=== PATIENT | female | born 1980 | race Caucasian/White ===

== ENCOUNTER 2019-07-24 13:17 | Emergency (ER) | payer MEDICARE, OTHER ==
[~2019-07-24] VITALS: Ht 170.2 cm; Wt 77.1 kg
[~2019-07-24 13:17] MED LIST: FELBATOL600 MG PO; FOLIC ACID1 MG PO; ULTRAM50 MG PO
[2019-07-24] MEDS ORDERED: ONDANSETRON ODT8 MG PO (16:52)
== END 2019-07-24 17:15 | disposition home or self-care (01) ==
LOC: ED 13:17
DX: G40.909 Epilepsy, unspecified, not intractable, without status epilepticus (principal); D64.9 Anemia, unspecified; Z91.040 Latex allergy status; Z79.899 Other long term (current) drug therapy
CPT/HCPCS: 70450; 80053; 81001; 82542; 83735; 84484; 84703; 85025; 96360; 96361; 99285-25; J7030

== ENCOUNTER 2019-08-07 14:35 | Emergency (ER) | payer MEDICARE, OTHER ==
[~2019-08-07] VITALS: Ht 170.2 cm; Wt 77.1 kg
[~2019-08-07 14:35] MED LIST changes: +ONDANSETRON ODT8 MG PO
--- OUTSIDE RECORDS SUMMARY | 2019-08-07 14:38 | XMS ---
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 Evin VISIT COUNT (12 MO.) 2 [facility] TOTAL 2 NOTE: Visits indicate total known visits. ED/UCC VISIT TRACKING (12 MO.) 08/07/2019 14:35 [facility] [place] TYPE: Emergency COMPLAINT: - ALOC 07/24/2019 13:19 [facility] [place] TYPE: Emergency COMPLAINT: - DIZZINESS, NAUSEA, SEIZURE DIAGNOSES: - Anemia, unspecified - Latex allergy status - Other bed bug exterminator (current) drug therapy - Epilepsy, unsp, not intractable, without status epilepticus INPATIENT VISIT TRACKING (12 MO.) No inpatient visits to display in this time frame [email or web address]
[2019-08-07] MEDS ORDERED: VALIUM5 MG PO (17:10)
--- NOTE | 2019-08-08 16:36 | EKG ---
[facility] [address] [facility] [place] [facility] [place], [place] [address] Signed Normal sinus rhythm Possible Left atrial enlargement Left ventricular hypertrophy Abnormal ECG No previous ECGs available Confirmed by SINAN BLOCK MD ([id number]) on 08/08/2019 4:36:28 PM Electronically Signed By: SINAN BLOCK MD 08/08/19 1636 PATIENT NAME: CARLA GRIFFIN Electrocardiogram DATE OF : 76 PHYSICIAN: SINAN BLOCK MD REPORT #: [id number] REPORT IS CONFIDENTIAL AND NOT TO BE RELEASED WITHOUT AUTHORIZATION
== END 2019-08-07 17:32 | disposition home or self-care (01) ==
LOC: ED 14:35
DX: G40.909 Epilepsy, unspecified, not intractable, without status epilepticus (principal); D64.9 Anemia, unspecified; S40.012A Contusion of left shoulder, initial encounter; Z91.040 Latex allergy status; Z79.899 Other long term (current) drug therapy; X58.XXXA Exposure to other specified factors, initial encounter
CPT/HCPCS: 36415; 73030; 80053; 82542; 85025; 93005; 93010; 99284-25

== ENCOUNTER 2019-10-08 05:55 | Day surgery (SDC) | payer MEDICARE, OTHER ==
[~2019-10-08] VITALS: Ht 170.2 cm; Wt 69.0 kg
[~2019-10-08 05:55] MED LIST changes: +IRON325 M1; +LORAZEPAM1 MG PO; +MULTIVITAMIN W1 EACH PO; +VALIUM5 MG PO
[2019-10-08] MEDS ORDERED: FLONASE ALLERG9.9 ML NAS (06:30)
--- NOTE | 2019-10-12 09:50 | OR ---
[facility] [address] [place], [place] [address] Signed DATE OF OPERATION: 10/08/2019 SURGEON: Rain Duckworth MD PREOPERATIVE DIAGNOSIS: Persistent iron deficiency anemia (recent hematocrit 23). POSTOPERATIVE DIAGNOSES: 1. Cecal tumor consistent with malignancy. 2. Friable area of gastroesophageal junction and nodule of midesophagus. 3. Gastritis with small polyps of proximal stomach. PROCEDURES PERFORMED: 1. Esophagogastroduodenoscopy with biopsy. 2. Total colonoscopy to cecum with biopsy of cecal tumor and injection of Endomark tattoo dye. ANESTHESIA: Intravenous sedation, propofol infusion; Rain Cagle CRNA. 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 She is closely cared for by her mother. She is a patient of Dr. Manrique and Dr. Aragon. She has been noted to have persistent iron deficiency anemia of unknown etiology. She has had no hematemesis, epigastric pain, abdominal pain or blood per rectum. She is referred for upper endoscopy and colonoscopy to better characterize the source of her anemia. She understands as does her mother, the risks of bleeding, infection, and perforation and wished to proceed. FINDINGS: Upper endoscopy showed mild diffuse gastritis and some gastric polyps. She is not on a PPI medication as noted. The duodenum was normal. There is a firm benign-appearing smooth nodule in the distal esophagus at 36 cm, which was biopsied and easily made to bleed, and inflammatory focus of the GE junction as well, which was multiply biopsied. There was no sign of Adams epithelium. On colonoscopy, the source of the anemia is clearly identified as a tumor in the cecum. This was dense and hard and multiple biopsies were obtained. The remaining colon was normal including the rectum. Electronically Signed By: RAIN DUCKWORTH MD 10/12/19 0950 PATIENT NAME: CARLA GRIFFIN OPERATIVE REPORT DATE OF : 76 REPORT #: [id number] PHYSICIAN: RAIN DUCKWORTH MD PCP: LIZ MANRIQUE MD REPORT IS CONFIDENTIAL AND NOT TO BE RELEASED WITHOUT AUTHORIZATION [facility] [address] [place], [place] [address] Signed DESCRIPTION OF PROCEDURE: The patient was brought to the operating room and placed in lateral decubitus position. Given intravenous sedation with propofol infusional technique by the vice president payer. A bite block had been placed. An Olympus video upper endoscope was passed in the hypopharynx. Scope was advanced to the esophagus without problem. In the distal portion of the esophagus was a smooth yellow submucosal nodule. It was not ulcerated, it was not bleeding. The scope was passed beyond this into the stomach without problem. Stomach was insufflated with air. Rugal folds appeared normal. There was no sign of blood particularly. The antrum was normal as was the pylorus. Scope was passed through the pylorus into the duodenum. The duodenum appeared normal. Biopsies were obtained of the duodenum. The scope was withdrawn. Biopsies taken of the antrum for both RUPALI and pathologic testing. Retroflexed view showed a small hiatal hernia. There were few gastric polyps and product sales representative polyp was excised. The scope was straightened, withdrawn to the distal esophagus where a friable Z-line was noted. It did not appear to be a tumor, but it was clearly abnormal. This was multiply biopsied. The scope was withdrawn a bit and a smooth nodule certainly less than 5 mm was noted in the distal esophagus. Interrogation with the biopsy probe showed it to be apparently submucosal nodule and not entirely inconsistent with a leiomyoma or similar such lesion. A submucosal excision could be undertaken, but at this point, a simple biopsy was obtained. It was easily made to bleed. Bleeding was self-limited. The scope was then withdrawn and remaining esophagus was normal. Plans were then made for colonoscopy. Digital examination showed external hemorrhoidal changes. An Olympus video colonoscope was passed into the rectum and manipulated throughout the colon. What would likely be the cecum, a friable, firm, non-passable neoplasm was noted. It was most consistent with colon cancer. Endomark tattoo dye was injected in the surrounding area for future reference operatively and multiple biopsies taken of the lesion. It is most consistent with malignancy as it was firm and friable. Scope was then withdrawn. On examination, the remaining colon showed no sign of other abnormality. The scope was removed. The patient was taken to recovery room in good condition. CONCLUDING DIAGNOSIS: Most likely anemia related to cecal tumor (malignant). PLAN: We will make consideration for resection in the next several days. Today, we will obtain a CT scan of the abdomen and pelvis to assess for metastatic disease and further characterize the tumor characteristics. Electronically Signed By: RAIN DUCKWORTH MD 10/12/19 0950 PATIENT NAME: CARLA GRIFFIN OPERATIVE REPORT DATE OF : 76 REPORT #: [id number] PHYSICIAN: RAIN DUCKWORTH MD PCP: LIZ MANRIQUE MD REPORT IS CONFIDENTIAL AND NOT TO BE RELEASED WITHOUT AUTHORIZATION [address] [address] Signed MD JEFFERY Saavedra/MODL /[id number] cc: MD Javier Suazo MD Copies: LIZ MANRIQUE MD, ROBERT C MD ~ Electronically Signed By: RAIN DUCKWORTH MD 10/12/19 0950 PATIENT NAME: CARLA GRIFFIN OPERATIVE REPORT DATE OF : 76 REPORT #: [id number] PHYSICIAN: RAIN DUCKWORTH MD PCP: LIZ MANRIQUE MD REPORT IS CONFIDENTIAL AND NOT TO BE RELEASED WITHOUT AUTHORIZATION
--- NOTE | 2019-10-12 15:20 | PATH ---
[facility] [address] [place], [place] [address] Signed SPECIMEN(S): A DUODENUM SPECIMEN(S): B GASTRIC POLYP SPECIMEN(S): C ANTRUM/PYLORUS SPECIMEN(S): D GE JUNCTION SPECIMEN(S): E ESOPHAGUS AT 35 CM SPECIMEN(S): F CECAL TUMOR SPECIMEN SOURCE: A. DUODENUM B. GASTRIC POLYP C. ANTRUM/PYLORUS D. GE JUNCTION E. ESOPHAGUS AT 35 CM F. CECAL TUMOR CLINICAL HISTORY: Severe anemia. EGD post: Esophageal nodule, gastritis. Colon post: Tumor at cecum. MICROSCOPIC DESCRIPTION: Histologic sections of all submitted blocks are examined by light microscopy. These findings, together with the gross examination, support the pathologic diagnosis. A panel of four antibodies is selected which will detect 95% of microsatellite unstable carcinomas. Block: F1. Recut HE slide is prepared from the block. The presence of neoplastic glands and non-neoplastic internal control glands or stroma is confirmed. Internal control cells for MLH1, MSH2, PMS2 and MSH6 are positive. Neoplastic gland cells show the following: - MLH1: Positive. - MSH2: Positive. - MSH6: Positive. - PMS2: Positive. [facility] [place] [facility] [place] DDF:rafaela FINAL PATHOLOGIC DIAGNOSIS: A. Duodenum, biopsy: - Reactive duodenal mucosa, negative for significantly increased intraepithelial lymphocytosis. B. Gastric polyp, polypectomy: PATIENT NAME: CARLA GRIFFIN Sonny PATHOLOGY DATE OF : 76 REPORT #: [id number] PHYSICIAN: [facility] PCP: LIZ MEDEROS MD REPORT IS CONFIDENTIAL AND NOT TO BE RELEASED WITHOUT AUTHORIZATION [facility] [address] [place], [place] [address] Signed - Fundic gland polyp. C. Antrum/pylorus, biopsy: - Benign gastric mucosa with vascular congestion. - Negative for intestinal metaplasia. - Negative for Helicobacter organisms on routine stain. D. GE junction, biopsy: - Fragments of reactive squamocolumnar mucosa. - Negative for intestinal metaplasia and dysplasia. E. Esophageal nodule at 35 cm, biopsy: - Poorly differentiated carcinoma; see comment. F. Cecal tumor, biopsy: - Invasive adenocarcinoma, moderately differentiated. - Microsatellite instability testing by IHC: Normal pattern. - MLH1: Intact nuclear expression. - MSH2: Intact nuclear expression. - MSH6: Intact nuclear expression. - PMS2: Intact nuclear expression. COMMENT: Tumor cells show no loss of nuclear expression of MMR proteins. This correlates with a low probability of microsatellite instability. However, if there is a high clinical suspicion for Gregg syndrome (hereditary non-polyposis colorectal carcinoma syndrome) in this patient, additional testing should be considered. Please contact [facility] if such testing is indicated. Histologic sections of the esophageal nodule show clusters and sheets of atypical epithelioid cells within the submucosa. Rare vague glandular differentiation is seen but mostly solid sheets are present. Properly controlled immunohistochemical stains were performed. The cells of interest are strongly positive for pancytokeratin (AE1/AE3) while negative for p63 and S100. These findings are consistent with carcinoma. Based on the morphology, this would best be described as poorly differentiated. The negative p63 makes a squamous cell carcinoma less likely, favoring this to be a poorly differentiated adenocarcinoma. As part of [facility]' Quality Improvement Program, this case was reviewed by another member of our pathology staff. These results were relayed to Dr. Petit by Dr. Trujillo on 10/12/2019 at 2:45 PM. DDF:NRT:cml:C1NR GROSS DESCRIPTION: PATIENT NAME: CARLA GRIFFIN PATHOLOGY DATE OF : 76 REPORT #: [id number] PHYSICIAN: ZAK GRISSOM PCP: LIZ MEDEROS MD REPORT IS CONFIDENTIAL AND NOT TO BE RELEASED WITHOUT AUTHORIZATION [facility] [address] [place] [id number] Signed Six specimens are received in six containers, labeled "CM." A. The specimen, labeled "CM, 1," and designated on the requisition "duodenum," is received in formalin and consists of a single monzon soft tissue fragment that measures 0.3 cm in greatest dimension. The specimen is entirely submitted in cassette (A1). B. The specimen, labeled "CM, 2," and designated on the requisition "stomach polyp," is received in formalin and consists of a single monzon soft tissue fragment that measures 0.3 cm in greatest dimension. The specimen is entirely submitted in cassette (B1). C. The specimen, labeled "CM, 3," and designated on the requisition "antrum/pylorus," is received in formalin and consists of a single monzon soft tissue fragment that measures 0.3 cm in greatest dimension. The specimen is entirely submitted in cassette (C1). D. The specimen, labeled "CM, 4," and designated on the requisition "GE junction," is received in formalin and consists of two monzon soft tissue fragments that measure 0.3 cm in greatest dimension. The specimen is entirely submitted in cassette (D1). E. The specimen, labeled "CM, 5," and designated on the requisition "esophageal nodule at 35 cm," is received in formalin and consists of three monzon soft tissue fragments that measure 0.3 cm in greatest dimension. The specimen is entirely submitted in cassette (E1). F. The specimen, labeled "CM, 6," and designated on the requisition "cecal tumor," is received in formalin and consists of multiple monzon-brown soft tissue fragments that measure 0.3 cm in greatest dimension. The specimen is entirely submitted in cassette (F1). AT (under the direct supervision of a pathologist) The Gross Description was prepared using a voice recognition system. The report was reviewed for accuracy; however, sound-alike word errors, addition and/or deletions may occur. If there is any question about this report, please contact Client Services. ADDITIONAL NOTES: Immunohistochemical and/or in situ hybridization studies were performed on this case with the appropriate positive controls that react as expected. This test was developed and its performance characteristics determined by [facility]. It has not been cleared or approved by the U.S. Food and Drug Administration. The FDA has determined that such clearance or approval is not necessary. This test is used for clinical purposes. It should not be regarded as investigational or for research. [facility] is certified under the PATIENT NAME: CARLA GRIFFIN PATHOLOGY DATE OF : 76 REPORT #: [id number] PHYSICIAN: [facility] PATHOLOGY PCP: LIZ MEDEROS MD REPORT IS CONFIDENTIAL AND NOT TO BE RELEASED WITHOUT AUTHORIZATION [facility] [address] [place], [place] [address] Signed Clinical Laboratory Improvement Amendments of 1988 (CLIA) as qualified to perform high complexity clinical laboratory testing. PERFORMING LABORATORY: The technical component was performed by [facility], [address] [place] [id number] (Messenger Floorperson: Magy Santiago MD; CLIA# [id number]). [facility], [address] [address] (CLIA# [id number]). Diagnostician: Frantz Trujillo DO Pathologist Electronically Signed 10/12/2019 Copies: ~ PATIENT NAME: CARLA GRIFFIN PATHOLOGY DATE OF : 76 REPORT #: [id number] PHYSICIAN: [facility] PATH[facility] PCP: LIZ MEDEROS MD REPORT IS CONFIDENTIAL AND NOT TO BE RELEASED WITHOUT AUTHORIZATION
== END 2019-10-08 11:25 | disposition home or self-care (01) ==
LOC: DS 05:55 → OPS 05:55 → DS 06:45 → OPS 06:45
PROVIDERS: Surgery
PROC: 0DB98ZX Excision of Duodenum, Via Natural or Artificial Opening Endoscopic, Diagnostic (ICD-10-PCS; 2019-10-08)
PROC: 0DB78ZX Excision of Stomach, Pylorus, Via Natural or Artificial Opening Endoscopic, Diagnostic (ICD-10-PCS; 2019-10-08)
PROC: 0DB58ZX Excision of Esophagus, Via Natural or Artificial Opening Endoscopic, Diagnostic (ICD-10-PCS; 2019-10-08)
PROC: 0DB48ZX Excision of Esophagogastric Junction, Via Natural or Artificial Opening Endoscopic, Diagnostic (ICD-10-PCS; 2019-10-08)
PROC: 0DBH8ZX Excision of Cecum, Via Natural or Artificial Opening Endoscopic, Diagnostic (ICD-10-PCS; principal; 2019-10-08 06:45)
PROC: 3E0H8GC Introduction of Other Therapeutic Substance into Lower GI, Via Natural or Artificial Opening Endoscopic (ICD-10-PCS; 2019-10-08 06:45)
DX: C18.0 Malignant neoplasm of cecum (principal); C15.5 Malignant neoplasm of lower third of esophagus; D50.9 Iron deficiency anemia, unspecified; K64.4 Residual hemorrhoidal skin tags; K44.9 Diaphragmatic hernia without obstruction or gangrene; G40.909 Epilepsy, unspecified, not intractable, without status epilepticus; G91.9 Hydrocephalus, unspecified; G81.10 Spastic hemiplegia affecting unspecified side; F41.1 Generalized anxiety disorder; Z91.040 Latex allergy status; Z79.899 Other long term (current) drug therapy
CPT/HCPCS: 36415; 74177; 80053; 82247; 82378; 82465; 83615; 84100; 84478; 84550; 84703; 85025; 88305; 88341; 88342; J0690; J2704; J7121

== ENCOUNTER 2019-10-14 14:20 | Inpatient (IN) | payer MEDICARE, OTHER ==
[~2019-10-14] VITALS: Ht 170.2 cm; Wt 68.0 kg
--- OUTSIDE RECORDS SUMMARY | ~2019-10-14 | XMS | Encounter Summary ---
Demographics + + + | Address | [address] | | | [place] [address] | + + + | Home Phone | | + + + | Preferred Language | Unknown | + + + | Marital Status | Unknown | + + + | Mu-Ism Affiliation | Unknown | + + + | Race | Unknown | + + + | Ethnic Group | Unknown | + + + Author + + + | Author | [facility] | | | and [place] | + + + | Organization | [facility] | | | and [place] | + + + | Address | Unknown | + + + | Phone | Unavailable | + + + Support + + +---------+ + | Name | Relationship | Address | Phone | + + +---------+ + | Lu William | ECON | Unknown | | + + +---------+ + | Aydin Stewart | ECON | Unknown | | + + +---------+ + Care Team Providers + +------+ + | Care Seafood Team Member Name | Role | Phone | + +------+ + PCP | Unavailable | + +------+ + Encounter Details +--------+ + + + + | Date | Type | Department | Care Team | Description | +--------+ + + + + | 02/22/ | [facility] | [facility] | Frantz Zepeda MD | | | 2009 | Encounter | MED CTR XRAY [address] | | | | | [place] | [place] [address] | | | | | [place] [address] | [phone] | | | | | [phone] | | | +--------+ + + + + Social History + +-------+ +--------+------+ | Tobacco Use | Types | Packs/Day | Years | Date | | | | | Used | | + +-------+ +--------+------+ | Never Assessed | | | | | + +-------+ +--------+------+ + + + | Sex Assigned at | Date Recorded | | | | + + + | Not on file | | + + + + + + + | Job Start Date | Occupation | Industry | + + + + | Not on file | Not on file | Not on file | + + + + + + + + | Travel History | Travel Start | Travel End | + + + + + + | No recent travel history available. | + + documented as of this encounter Plan of Treatment +--------+---------+ + + + | Date | Type | Specialty | Care Team | Description | +--------+---------+ + + + | 12/15/ | Office | Neurology | Nathaniel, | | | 2020 | Visit | | [address] | | | [address] [place], | | | | | | [place] [address] | | | | | | [phone] | | | | | | | | +--------+---------+ + + + documented as of this encounter Visit Diagnoses Not on filedocumented in this encounter"
--- OUTSIDE RECORDS SUMMARY | ~2019-10-14 | XMS | Encounter Summary ---
Demographics + + + | Address | [address] | | | [place] [address] | + + + | Home Phone | | + + + | Preferred Language | Unknown | + + + | Marital Status | Unknown | + + + | Congregation Affiliation | Unknown | + + + | Race | Unknown | + + + | Ethnic Group | Unknown | + + + Author + + + | Author | [facility] | | | and [place] | + + + | Organization | [facility] | | | and [place] | + + + | Address | Unknown | + + + | Phone | Unavailable | + + + Support + + +---------+ + | Name | Relationship | Address | Phone | + + +---------+ + | Lu William | ECON | Unknown | | + + +---------+ + | Aydin Stewrat | ECON | Unknown | | + + +---------+ + Care Team Providers + +------+ + | Care Senior Sql Server Database Developer Name | Role | Phone | + +------+ + PCP | Unavailable | + +------+ + Encounter Details +--------+ + + + + | Date | Type | Department | Care Team | Description | +--------+ + + + + | 04/05/ | [facility] | [facility] | Jay Pitt | | | 2009 | Encounter | MED CTR XRAY [address] | | | | | [place] | [place] | | | | | [place], [place] [address] | [address] | | | | | [phone] | | | +--------+ + + + [...] | | | | | [address] [place], | | | | | | [place] [address] | | | | | | [phone] | | | | | | | | +--------+---------+ + + + documented as of this encounter Visit Diagnoses Not on filedocumented in this encounter"
--- OUTSIDE RECORDS SUMMARY | ~2019-10-14 | XMS | Encounter Summary ---
Demographics + + + | Address | [address] | | | [place] [address] | + + + | Home Phone | | + + + | Preferred Language | Unknown | + + + | Marital Status | Unknown | + + + | Cheondoism Affiliation | Unknown | + + + | Race | Unknown | + + + | Ethnic Group | Unknown | + + + Author + + + | Author | [facility] | | | and Rickyana | + + + | Organization | [facility] | | | and Rickyana | [...] Team Providers + +------+ + | Care Well Drill Operator Helper Cable Tool Name | Role | Phone | + +------+ + PCP | Unavailable | + +------+ + Reason for Referral Evaluate & Treat (Routine) + + + + + + + | Status | Reason | Specialty | Diagnoses / | Referred By | Referred To | | | | | Procedures | Contact | Contact | + + + + + + + | Canceled | Specialty | Hematology | Diagnoses | Dill, | Agustín, | | | Services | and Oncology | Other | Kurt Moreno, | Francisco Javier | | | Required | | 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[address], | [address] | | | | | anemias | [place] | [place], | | | | | (FORMERLY [facility]) | [place], [place] | [place] [address] | | | | | | [address] | Phone: | | | | | | Phone: | [phone] | | | | | | [phone] | Fax: | | | | | | Fax: | [phone] | | | | | | [phone] | | + + + + + + + Diagnostic/Screening (Routine) + +--------+ + + + + | Status | Reason | Specialty | Diagnoses / | Referred By | Referred To | | | | | Procedures | Contact | Contact | + +--------+ + + + + | Authorized | | Radiology | Diagnoses | Dill, | Cc Wgr Mri | | | | | Seizures | Kurt R, | [address] | | | | | (HCC) | MD [address] | [place] | | | | | Procedures | [address], | [place], [place] | | | | | MRI Brain w | [place] | [address] | | | | | wo Contrast | [place], [place] | Phone: | | | | | | [address] | [phone] | | | | | | Phone: | Fax: | | | | | | [phone] | [phone] | | | | | | Fax: | | | | | | | [phone] | | + +--------+ + + + + Reason for Visit + + + | Reason | Comments | + + + | Establish Care | seizures | + + + Evaluate & Treat (Routine) +--------+--------+ + + + + | Status | Reason | Specialty | Diagnoses / | Referred By | Referred To | | | | | Procedures | Contact | Contact | +--------+--------+ + + + + | Closed | | Neurology | Diagnoses | Burton, | Fuentes, | | | | | Other | Ken[place] | Kurt Moreno MD | | | | | seizures | MD Angel | [address] | | | | | ([facility]) | [address] | [place] | | | | | | [address] | [place], [place] | | | | | | [place], | [address] Phone: | | | | | | [place] [address] | [phone] | | | | | | Phone: | Fax: | | | | | | [phone] | [phone] | | | | | | Fax: | | | | | | | [phone] | | +--------+--------+ + + + + Encounter Details +--------+---------+ + + + | Date | Type | Department | Care Team | Description | +--------+---------+ + + + | 08/25/ | Office | [place] [facility] | Kurt Dill MD | SEIZURE DISORDER, | | 2020 | Visit | [facility] | [address] [place] | COMPLEX PARTIAL | | | | CLINIC [address] | [place], [place] | (Primary Dx); | | | | [address] [place], | [address] | Spastic hemiplegia | | | | [place] [address] | | affecting left | | | | [phone] | | dominant side, | | | | | | unspecified etiology | | | | | | (HCC); 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 | | | + + + + | How many drinks containing alcohol do you | Not asked | | | have on a typical day when you are | | | | drinking? | | | + + + + | How often do you have six or more drinks on | Not asked | | | one occasion? | | | + + + + + + + | Sex Assigned at [...] + + documented as of this encounter Last Filed Vital Signs + + + + + | Vital Sign | Reading | Time Taken | Comments | + + + + + | Blood Pressure | 124/86 | 08/26/2019 8:52 AM | | | | | PDT | | + + + + + | Pulse | 128 | 08/26/2019 8:52 AM | | | | | PDT | | + + + + + | Temperature | - | - | | + + + + + | Respiratory Rate | 20 | 08/26/2019 8:52 AM | | | | | PDT | | + + + + + | Oxygen Saturation | 99% | 08/26/2019 8:52 AM | | | | | PDT | | + + + + + | Inhaled Oxygen | - | - | | | Concentration | | | | + + + + + | Weight | 69.4 kg (153 lb) | 08/26/2019 8:52 AM | | | | | PDT | | + + + + + | Height | 167.6 cm (5' 6") | 08/26/2019 8:52 AM | | | | | PDT | | + + + + + | Body Mass Index | 24.69 | 08/26/2019 8:52 AM | | | | | PDT | | + + + + + documented in this encounter Patient Instructions Patient Instructions Kurt Dill MD - 08/26/2019 9:00 AM PDTFormatting of this note mi ght be different from the original. Patient Instructions [facility] Dr. 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 magazines, perform word find exercises such as cross word puzz le, and scrabble, other puzzle games like vIPtelau, Mahjong. Play computer/mobile applications such as [employer] and [employer] GAMES Continue Felbatol 1,800 mg twice a day Will obtain recent blood tests from [facility]. In [place] Advised to avoid sleep deprivation, alcohol, stimulants, or any type of head trauma Discussed with mother Stacia, and step father Aydin Discussed with mother that if she persists to have seizures, we'll start Keppra 500 mg by m nuris twice a day Got recent blood tests from [facility] in [place], Felbatol level was 97, normal range 30 60 micrograms per mL, therefore toxic levels and with evidence of anemia hemoglobin 8.4 he matocrit 25.7, advised to decrease Felbatol to 2 tabs a.m., and 3 tabs in p.m. We'll refer to hematologists for her anemia, Dr. Randolph Any Questions please call BRETT Price or Dr. Dill at [facility] Partial Seizures: Know What to Do Because seizures may happen at any time, it helps to be prepared. This is true even ifmed ivoryne usually keeps your seizures under control. Start by telling those you live and work wi th about your health condition. Make sure they know what to do if a seizure happens. Steps for your protection Most partial seizures last from a few seconds to a few minutes. During that time, those juan und you should help keep you safe. What those witnessing the seizure should do is listed bel ow. What to do Seek medical attention right awayif you: Are hurt during the seizure Begin choking Have a seizure that lasts more than 5 minutes Have multiple seizures in a row Don't fully regain consciousness after the seizure is over Otherwise, they should do the following: Move any hard or sharp objects away from you. Turn you on your left side if you seem unconscious. Talk to you afterward to relieve your confusion. Note how long the seizure lasted. Note what you were doing before, during, and after the seizure. What NOT to do It is important thatthey don't do the following: Don't try to stop any jerking or twisting. Don't put anything in the mouth. Don't try to hold the tongue. Prepare family, friends, and coworkers It may seem awkward to talk to others about seizures. But telling family, friends, and cowo rkers about your seizures can help them react to a seizure in a way that will help and not hurt you. Describe to them what happens before, during, and after you have a seizure. Exp rubin what they should and should not do. Date Last Reviewed: 10/08/201719992940-0236 [employer]. [address] [place] [address], [place] [address]. All righ ts reserved. This information is not intended as a substitute for professional medical care. Always follow your healthcare professional's instructions. Medicines for Partial Seizures For most people,medicines can control partial seizures. But because there are several typ es of partial seizures, it may take some time to find the bestmedicines for you. Yourhea [facility] providermay try several kinds ofmedicines at varying doses before finding what w orks best for you. You can help makemedicines a success by following these suggestions. Keep yourhealthcare providerinformed Don t be afraid to talk to yourhealthcare providerabout your medicines. Speaking up i s the only way your healthcare provider can know if yourmedicine is working right. Be sure to tell yourhealthcare providerif: You are still having seizures. Keep a seizure calendar to accurately keep track of your seizures. You notice any side effects from the medicine. You are taking any other medicines even gvgl-bfl-zanzaex ones. It is always important to be under the regular care of a healthcare provider if you have a seizure disorder. Make it a habit Try some of these ideas to make it easier to remember to take medicine: Set a watch or clock to go off when it s time for the next dose. Keepmedicine with things you use routinely. Store it near your makeup, toothbrush, or coffee mug, for example. Use a pillbox to count out all the pills you need for a week. Ask family, friends, or coworkers to remind you when it s time to take a dose. Consider a phone or Internet-based darrian that reminds you to take your medicine. Keep your medicines out of reach from children. Takemedicine as directed You need a certain level ofmedicine in your blood at all times. This way, when a seizure happens, your body is ready for it. Never skip a dose or stop taking yourmedicine without your healthcare provider s knowledge. Doing so could result in serious consequences. It's quite common for people with epilepsy to miss a single dose once in a while. Often nothing b ad happens but your change of having a seizure may be higher. Missing one dose is more likel y to cause seizures if you're scheduled to take your medicine only once a day. Then if you m iss a dose, you've missed a full day of medicine. If you take it 2 to 4 times a day, the ris k from missing one dose is less. But if you miss several doses in a row, the likelihood of a breakthrough seizure will be higher. Therefore, take all precautions to ensure that you kishor e your medicine on time. Date Last Reviewed: 10/08/201719992852-9013 [employer]. [address] [place] [address]. All righ ts reserved. This information is not intended as a substitute for professional medical care. Always follow your healthcare professional's instructions. What is a Partial Seizure (Focal Seizure)? In a partial seizure, excessive signals in the brain cause symptoms in the body. Have you or someone else noticed part of your body moving or shaking involuntarily? Do you have short periods when you feel confused, have memory loss, or appear to act unusual? Are y ou sometimes unaware of your actions or do you even pass out for a few moments? If so, you m ay be experiencing partial seizures. These occur when you have a condition called epilepsy. Partial seizures can be scary and frustrating. The good news is that they can usually be co ntrolled. How the brain works Your brain uses short bursts of electricity as signals. These signals allow areas of the br ain to communicate with each other. These signals also travel from the brain to the rest of your body. When part of the brain overloads Sometimes the signals become excessive. When this happens in one area of the brain, it is c alled a partial seizure. The excessive signals cause part of the body to work abnormally. Th en you may twitch, feel confused, or pass out for a moment. Partial seizures can present in many ways. Simple partial seizuresoften have only a few minor symptoms, such as hand twitching, v isual changes, smelling an unusual odor, or feeling a sense of dj-vu. "Simple"means th ere is no loss of consciousness. Complex partial seizures are often associated with more abnormal behavior. They may also affect your mental functioning to some degree."Complex"means youmay have a lowered le gladys of consciousness, mental confusion, or loss of memory. Partial seizures can be controlled Seizures can be caused by irritation or damage to the brain from injury, scar formation, tu mors, stroke, or infection.Usually the cause is unknown. However, most partial seizures ca n be successfully treated. With treatment, most people with seizures lead normal, fulfilling lives. Date Last Reviewed: 10/08/201719996857-1130 [employer]. [address] [facility], [place] [address]. All righ ts reserved. This information is not intended as a substitute for professional medical care. Always follow your healthcare professional's instructions. Partial Seizures: Staying Healthy With a little bit of planning, most people with partial seizures are able to lead active, f ulfilling lives. You can, too. Follow these suggestions to stay as healthy as possible and h ead off seizures before they happen. Get regular, moderate exercise Walking and biking are great ways to stay active. Make sure your seizures are under control before starting any exercise program to decrease your risk for injury. Make it safer and mo re fun by asking a friend to join you or consider organized exercise groups or classes. Don't swim until seizures are under control. Then, never swim alone. Because you could become unconscious or veer off the road due to a sudden movement, there i s the potential for danger while cycling if seizures are not well controlled. In addition to the risk for broken bones, head injuries can occur while cycling, so always wear a helmet. Find ways to deal with stress You may have stressors in your everyday life. You may also be feeling some stress from deal ing with seizures. But feeling too much stress may trigger seizures. Try some of these ideas to reduce stress: Consider switching job activities if your work is not compatible with epilepsy. Get more help around the house. Look at having seizures as a chance to review your life's goals. Focus your energy on staying well. Many successful people have coped with seizures. Talk to family and friends about your concerns. Ask your doctor about support groups for people dealing with seizures. Ask your doctor or nurse to show you relaxation methods, such as deep breathing and visu alization. Spend time on a hobby you enjoy. Don't use brain-altering substances Many chemicals can cause or trigger seizures. Even small amounts of alcohol can lead to sei zures. Many illegal drugs also cause severe seizures, even in people who don't normally have them. Listen to your body You can sometimes limit seizures by staying in touch with what your body is telling you. Identify events that may trigger your seizures. For instance, flickering lights from the TV, computer screen, or fluorescent lights trigger seizures in some people. Look for patterns that occur before a seizure happens. Some people notice certain sounds , smells, or sights that aren t really there (called an aura) just before a seizure. Keep your body from becoming overtired. Get enough sleep every night. Get plenty of rest when you are sick. The risk of getting a seizure is high when you are fighting an infection. Date Last Reviewed: 10/08/201719996343-9267 [employer]. [address] [place] [address], [place] [address]. All righ ts reserved. This information is not intended as a substitute for professional medical care. Always follow your healthcare professional's instructions. documented in this encounter Progress Notes Kurt Dill MD - 08/26/2019 9:00 AM PDT Patient: Wanda Carrion Medical Record: [id number] Date of Services: 08/26/2019 Referring Doctor: No primary care provider on file. Chief Complaint: Seizures, recurrent History of Present Illness: Mrs. Carrion was a 39-year-old right-handed young lady, seen for neurologic evaluation, co mplaint of recurrent seizures for the past a few weeks, complex partial with secondary gener alization. She has significant history of seizures since she was 2 years old after she had developed meningitis and was initially placed on Dilantin and phenobarbital combination. Sh e was even tried on gabapentin previously with no success of the present medications. Patie nt was then switched to Felbatol which she receives at a 1800 mg by mouth twice a day, 3 tab lets by mouth twice a day. About 6 weeks ago, she was found on the floor in the bathroom when she apparently had a sei zure episode at that time. According to the patient and family, seen with the mother Stacia and stepfather Aydin, she tried to get up and apparently the next thing she was having tonic- clonic seizures for a few minutes and resolved spontaneously. He did not seek consultation until about a week when her seizures recurred once again and she seen in [facility] in [place] where a CT scan of brain on contrast on July 24, 2019, demonstrating shunt ca theter in the right frontal horn, ventriculomegaly, absence of the corpus callosum and no e vidence of acute mass or bleed. Her blood tests at that time demonstrated normal renal and liver functions, however, she wa s noted to have hemoglobin 8.4 hematocrit 25.7 and a Felbatol level was 97, toxic level with reference value of 30 60 micrograms per mL. From the last report of her CBC on January, her CBC at that time demonstrated hemoglobin of 13 and hematocrit of 38. According to the family, she will have repeat blood tests this coming Saturday. I discussed in detail about the side effects of Felbatol with development of blood dyscrasi as such as aplastic anemia and will be referred to a care coordination manager, [facility]. Advised to at least decrease her Felbatol to 2 in the morning, and 3 tabs in the tanner amber and if recurent seizures , she will start on Keppra 500 mg by mouth twice a day for seizure prophylaxis and will slowly taper Felbatol. I discussed this in great detail with t he mother Stacia. In addition, further investigation will be Performed with a MRI the brain with or without contrast, routine and 24-hour ambulatory EEG monitoring. Of special note, patient has significant history of status post shunt placement at 2-1/1 ye ars old with no revisions. 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 Unfortuna geovanni, after her last seizure, her gait has slightly deteriorated and advised aggressive PT/O T and water therapy Past Medical History: Diagnosis Date Anemia Depression Developmental delay Hydrocephalus (HCC) Seizures (HCC) Tuberculosis 1979 Social History Socioeconomic History Marital status: Single Spouse name: Not on file Number of children: Not on file Years of education: Not on file Highest education level: Not on file Occupational History Not on file Social Needs Financial resource strain: Not on file Food insecurity: Worry: Not on file Inability: Not on file Transportation needs: Medical: Not on file Non-medical: Not on file Tobacco Use Smoking status: Never Smoker Smokeless tobacco: Never Used Substance and Sexual Activity Alcohol use: Never Frequency: Never Drug use: Never Sexual activity: Not on file Lifestyle Physical activity: Days per week: Not on file Minutes per session: Not on file Stress: Not on file Relationships Social connections: Talks on phone: Not on file Gets together: Not on file Attends taoist service: Not on file Active member of club or organization: Not on file Attends meetings of clubs or organizations: Not on file Relationship status: Not on file Intimate partner violence: Fear of current or ex partner: Not on file Emotionally abused: Not on file Physically abused: Not on file Forced sexual activity: Not on file Other Topics Concern Not on file Social History Narrative Not on file Family History Problem Relation Age of Onset No known problems Mother Other (see comment) Father Review of Systems: Denies headache, earache, nasal catarrh, diplopia, blurring of vision, d ysphagia, odynophagia, sore throat, neck masses, hearing loss, chest pain, palpitations, mau rtness of breath, cough, hemoptysis, abdominal pain, diarrhea, constipation, bowel or bladde r dysfunction, hematuria, dysuria, lymphadenopathies, echhymoses, rashes, gait ataxia, and h omicidal or suicidal ideations. Current Outpatient Medications Medication Sig Dispense Refill felbamate (FELBATOL) 600 MG tablet take 2 tablets three times daily fluticasone (FLONASE) 50 mcg/nasal spray folic acid 1 mg tablet Take 1 mg by mouth Daily. LORazepam (ATIVAN) 1 mg tablet take 1 tablet by mouth if needed for SEIZURE; NOT MORE T WARE 2 TABLETS DAILY multivitamin (THERAGRAN) per tablet Take one by mouth daily tretinoin (RETIN-A) 0.1 % cream No current facility-administered medications for this visit. Allergies Allergen Reactions Latex Hives Labs & Diagnostics: No results found for this or any previous visit (from the past 24 hour(s)). No results found. Neurological Examination: Vitals: 08/26/19 0852 BP: 124/86 Pulse: 128 Resp: 20 PainSc: 0 - No pain MENTAL STATUS: The patient is awake, alert, and oriented to time, place, and person. [facility] is fluent. Able to repeat and able to name simple objets CRANIAL NERVES: Funduscopy revealed distinct disc margins. There are no exudates or hemor rhages noted. Pupils are 3-4 mm, equal and reactive to light and accommodation. Extraocular muscle movements are intact. There are no visual field cuts. There is no nystagmus. There is no facial asymmetry. Facial sensation is intact. Palate elevates symmetrically. Streng th in the trapezius and sternocleidomastoid muscles is normal. Tongue is midline on protrusi on. MOTOR EXAMINATION: Strength is 5/5 throughout. Tone is normal. SENSORY EXAMINATION: withdraws to painful stumuli symmetrically DEEP TENDON REFLEXES: Hyperreflexic throughout, 3 + slightly more on the rightPLANTAR RESPO NSES: Downgoing bilaterally GAIT: Wide base stance, difficulty in ambulation requirng support with spastic left hemipa resis, requires assistance for ambulation CEREBELLAR EXAMINATION: There is no dysmetria on [id number]-kk-[id number] test. MISCELLANEOUS EXAM: Well kept, well nourished, Atraumatic, no evidence of frontal or maxil [place]erie sinus tenderness, no neck masses, mild tenderness in the paraspinal lumbosacral spine w ith increased pain upon flexion and extension at 5-10, abdomen is soft and nontender, extr emities equally palpable pulses Clinical Impression: Seizures, complex partial with secondary generalization, recurrent with recent head trauma Hx Shunt placement at 2 1/2 y/o Hx Meningitis @ 2 y/o with development of meningitis Gait disorder with left spastic hemiparesis Hx Mental Deficiency due to history of meningitis at 2 y/o Plan: Please schedule next follow up appt with Devante in 3-4 months for Seizures, complex partial with secondary generalization Hx Shunt placement at 2 1/2 y/o Hx Meningitis @ 2 y/o with development of meningitis Gait disorder with left spastic hemiparesis You have the following tests/procedures ordered: Orders Placed This Encounter Procedures MRI Brain w wo Contrast EEG EEG 24 HR AMBULATORY MONITORING Treatment Option- massage, Acupuncture, Over the counter heat patches (icy hot, thermacare, salonpas) , over the counter creams (aspercream, bengay cream, emu oi l), Relaxation therapy, Water therapy, Cortisone shots, Toradol Injections Suggest reading newspapers. magazines, perform word find exercises such as cross word puzz le, and scrabble, other puzzle games like SudJFDI.Asiau, Mahjackng. Play computer/mobile applications such as Moprise and MIND GAMES Continue Felbatol 1,800 mg twice a day Will obtain recent blood tests from [facility]. In [place] Advised to avoid sleep deprivation, alcohol, stimulants, or any type of head trauma Discussed with mother Stacia, and step father Aydin Discussed with mother that if she persists to have seizures, we'll start Keppra 500 mg by m nuris twice a day Got recent blood tests from [facility] in [place], Felbatol level was 97, normal range 30 60 micrograms per mL, therefore toxic levels and with evidence of anemia hemoglobin 8.4 he matocrit 25.7, advised to decrease Felbatol to 2 tabs a.m., and 3 tabs in p.m. We'll refer to hematologists for her anemia, Dr. Randolph Advised home PT/OT and water therapy for gait training, though family prefers to perform th eir own home PT/OT at home Any Questions please call BRETT Price or Dr. Dill at [facility] Kurt Dill MD08/26/20199:49 AM Electronically signed NOTE: Part of this report was transcribed using voice recognition software. Every effort was made to ensure accuracy. However, inadvertent computerize wooden furniture polisher errors may be present documented in this encounter Plan of Treatment +--------+---------+ + + + | Date | Type | Specialty | Care Team | Description | +--------+---------+ + + + | 12/15/ | Office | Neurology | Nathaniel, | | 2019 | Visit | | [address] | | | | | | [address] [facility], | | | | | | [place] [address] | | | | | | [phone] | | | | | | | | +--------+---------+ + + + + + +--------+ + + | Name | Type | Priori | Associated Diagnoses | Order Schedule | | | | ty | | | + + +--------+ + + | MRI Brain w wo | Imaging | Routin | SEIZURE DISORDER, | Expected: | | Contrast | | e | COMPLEX PARTIAL | 08/26/2019, Expires: | | | | | | 08/25/2020 | + + +--------+ + + | EEG | Neurology | Routin | SEIZURE DISORDER, | 1 Occurrences | | | | e | COMPLEX PARTIAL | starting 08/26/2019 | | | | | | until 08/25/2020 | + + +--------+ + + | EEG 24 HR AMBULATORY | Neurology | Routin | SEIZURE DISORDER, | 1 Occurrences | | MONITORING | | e | COMPLEX PARTIAL | starting 08/26/2019 | | | | | | until 08/25/2020 | + + +--------+ + + + + +--------+ + + | Name | Type | Priori | Associated Diagnoses | Order Schedule | | | | ty | | | + + +--------+ + + | Hematology, External | Outpatient | Routin | Other | Ordered: 08/26/2019 | | - AMB Referral | Referral | e | non-autoimmune | | | | | | hemolytic anemias | | | | | | (HCC) | | + + +--------+ + + documented as of this encounter Visit Diagnoses + + | Diagnosis | + + | SEIZURE DISORDER, COMPLEX PARTIAL - Primary Other convulsions | + + | Spastic hemiplegia affecting left dominant side, unspecified etiology (HCC) | + + | 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
--- OUTSIDE RECORDS SUMMARY | ~2019-10-14 | XMS | Encounter Summary ---
Demographics + + + | Address | [address] | | | [place] [address] | + + + | Home Phone | | + + + | Preferred Language | Unknown | + + + | Marital Status | Unknown | + + + | Lutheran Affiliation | Unknown | + + + | Race | Unknown | + + + | Ethnic Group | Unknown | + + + Author + + + | Author | [facility] | | | and Rickyana | + + + | Organization | [facility] | | | and Rickyana [...] Team Providers + +------+ + | Care Trim Operator Name | Role | Phone | + +------+ + PCP | Unavailable | + +------+ + Encounter Details +--------+ + + + + | Date | Type | Department | Care Team | Description | +--------+ + + + + | 03/17/ | [facility] | [facility] | Frantz Zepeda MD | | | 2009 | Encounter | MED CTR XRAY [address] | [address] | | | | | [place] | [place] [address] | | | | | [place] [address] | [phone] | | | | | [phone] | | | +--------+ + + + [...] | | | | | [address] [place], | | | | | | [place] [address] | | | | | | [phone] | | | | | | | | +--------+---------+ + + + documented as of this encounter Visit Diagnoses Not on filedocumented in this encounter"
--- OUTSIDE RECORDS SUMMARY | ~2019-10-14 | XMS | Encounter Summary ---
Demographics + + + | Address | [address] | | | [place] [address] | + + + | Home Phone | | + + + | Preferred Language | Unknown | + + + | Marital Status | Unknown | + + + | Episcopalian Affiliation | Unknown | + + + | Race | Unknown | + + + | Ethnic Group | Unknown | + + + Author + + + | Author | [facility] | | | and Rickyana | + + + | Organization | [facility] | | | and Rickyana | [...] Team Providers + +------+ + | Care Toy Electric Train Repairer Name | Role | Phone | + +------+ + PCP | Unavailable | + +------+ + Encounter Details +--------+ + + + + | Date | Type | Department | Care Team | Description | +--------+ + + + + | 07/05/ | [facility] | [facility] | Jay Pitt | | | 2010 | Encounter | MED CTR XRAY [address] | [address] | | | | | [place] | [place] | | | | | [place], [place] [address] | [address] | | | | | [phone] | | | +--------+ + + + [...] | | | | | | [place] [address] | | | | | | [phone] | | | | | | | | +--------+---------+ + + + documented as of this encounter Visit Diagnoses Not on filedocumented in this encounter"
--- OUTSIDE RECORDS SUMMARY | ~2019-10-14 | XMS | Encounter Summary ---
Demographics + + + | Address | [address] | | | [place] [address] | + + + | Home Phone | | + + + | Preferred Language | Unknown | + + + | Marital Status | Unknown | + + + | Christianity Affiliation | Unknown | + + + | Race | Unknown | + + + | Ethnic Group | Unknown | + + + Author + + + | Author | [facility] | | | and [place] | + + + | Organization | [facility] | | | and Rickyana | + + + | Address | Unknown | + + + | Phone | Unavailable | + + + Support + + +---------+ + | Name | Relationship | Address | Phone | + + +---------+ + | Lu William | ECON | Unknown | | + + +---------+ + | Aydin William | LISANDRA | Unknown | | + + +---------+ + Care Team Providers + +------+ + | Care Caregivers Non Medical Name | Role | Phone | + +------+ + | Kenroy Manrique MD | PCP | | + +------+ + Encounter Details +--------+ + + + + | Date | Type | Department | Care Team | Description | +--------+ + + + + | 08/27/ | Telephone | [place] [facility] | Kurt Dill MD | | | 2019 | | [facility] [address] | [address] | | | | | [place] | [place], [place] | | | | | [place], [place] | [address] | | | | | [address] | | | | | | [phone] | | | +--------+ + + + [...] | Neurology | Nathaniel, | | | 2019 | Visit | | [address] | | | | | | [address] [place], | | | | | | [place] [address] | | | | | | [phone] | | | | | | | | +--------+---------+ + + + documented as of this encounter Visit Diagnoses Not on filedocumented in this encounter"
--- OUTSIDE RECORDS SUMMARY | ~2019-10-14 | XMS | Clinical Summary ---
Demographics + + + | Address | [address] | | | [place] [address] | + + + | Home Phone | | + + + | Preferred Language | Unknown | + + + | Marital Status | Unknown | + + + | Church Affiliation | Unknown | + + + | Race | Unknown | + + + | Ethnic Group | Unknown | + + + Author + + + | Author | [facility] | | | and Rickyana | + + + | Organization | [facility] | | | and [place] | + + + | Address | Unknown | + + + | Phone | Unavailable | + + + Support + + +---------+ + | Name | Relationship | Address | Phone | + + +---------+ + | Lu William | ECON | Unknown | | + + +---------+ + | Aydin William | ECON | Unknown | | + + +---------+ + Care Team Providers + +------+ + | Care Pet Care Assistant Name | Role | Phone | + +------+ + | Kenroy Manrique MD | PCP | | + +------+ + Allergies + + + + + + | Active Allergy | Reactions | Severity | Noted | Comments | | | | | Date | | + + + + + + | Latex | Hives | | 08/26/19 | | | | | | 20 | | + + + + + + Medications + + + +---------+------+------+-------+ | Medication | Sig | Dispensed | Refills | Star | End | Statu | | | | | | t | Date | s | | | | | | Date | | | + + + +---------+------+------+-------+ | felbamate | take 2 tablets three | | 0 | 09/1 | | Activ | | (FELBATOL) 600 MG | times daily | | | 4/20 | | e | | tablet | | | | 12 | | | + + + +---------+------+------+-------+ | folic acid 1 mg | Take 1 mg by mouth | | 0 | 09/1 | | Activ | | tablet | Daily. | | | 4/20 | | e | | | | | | 12 | | | + + + +---------+------+------+-------+ | multivitamin | Take one by mouth | | 0 | 05/2 | | Activ | | (THERAGRAN) per | daily | | | 5/20 | | e | | tablet | | | | 11 | | | + + + +---------+------+------+-------+ | fluticasone | | | 0 | 03/1 | | Activ | | (FLONASE) 50 | | | | 7/20 | | e | | mcg/nasal spray | | | | 20 | | | + + + +---------+------+------+-------+ | LORazepam (ATIVAN) | take 1 tablet by | | 0 | 02/2 | | Activ | | 1 mg tablet | mouth if needed for | | | 6/20 | | e | | | SEIZURE; NOT MORE | | | 20 | | | | | THAN 2 TABLETS DAILY | | | | | | + + + +---------+------+------+-------+ | tretinoin | | | 0 | 06/10 | | Activ | | (RETIN-A) 0.1 % | | | | 10/27 | | e | | cream | | | | 20 | | | + + + +---------+------+------+-------+ | levETIRAcetam | Take 1 tablet by | 60 | 2 | 08/08 | 08/08 | Activ | | (KEPPRA) 500 mg | mouth 2 times daily. | tablet | | 01/27 | 01/27 | e | | tablet | | | | 20 | 21 | | + + + +---------+------+------+-------+ Active Problems + + + | Problem | Noted Date | + + + | SPASTIC HEMIPLEGIA AFFECTING UNSPECIFIED SIDE | 11/01/2010 | + + + + + | Overview: ICD-10 Record update | + + + + + | HYDROCEPHALUS | 11/01/2010 | + + + | SEIZURE DISORDER, COMPLEX PARTIAL | 11/01/2010 | + + + | LUMBAR RADICULOPATHY | | + + + | SCOLIOSIS | | + + + | SACROILIITIS | | + + + | DEGENERATIVE DISC DISEASE, LUMBAR SPINE | | + + + Encounters +--------+ + + + + | Date | Type | Specialty | Care Team | Description | +--------+ + + + + | 08/27/ | Telephone | Radiology | Kurt Dill MD | | | 2019 | | | | | +--------+ + + + + | 08/25/ | Office | Neurology | Kurt Dill MD | SEIZURE DISORDER, | | 2019 | Visit | | | COMPLEX PARTIAL | | | | | | (Primary Dx); | | | | | | Spastic hemiplegia | | | | | | affecting left | | | | | | dominant side, | | | | | | unspecified etiology | | | | | | (HCC); Other | | | | | | non-autoimmune | | | | | | hemolytic anemias | | | | | | (HCC) | +--------+ + + + + from Last 3 Months Family History + + +------+ + | Medical History | Relation | Name | Comments | + + +------+ + | Other (see comment) | Father | | | + + +------+ + | No known problems | Mother | | | + + +------+ + + +------+--------+ + | Relation | Name | Status | Comments | + +------+--------+ + | Father | | Alive | | + +------+--------+ + | Mother | | Alive | | + +------+--------+ + Social History + +-------+ +--------+------+ | [...] recent travel history available. | + + Last Filed Vital Signs + + + [...] | | + + + + + Plan of Treatment +--------+---------+ + + + | Date | Type | Specialty | Care Team | Description | +--------+---------+ + + + | 12/15/ | Office | Neurology | Nathaniel, | | | 2020 | Visit | | [place], FLOW MACHINE OPERATOR [address] | | | | | | [address] [facility], | | | | | | [place] [address] | | | | | | [phone] | | | | | | | | +--------+---------+ + + + + + + + + | Health Maintenance | Due Date | Last Done | Comments | + + + + + | Vaccine: | | [birth year] | | | Dtap/Tdap/Td (3 - | 0 | | | | Tdap) | | | | + + + + + | Cervical Cancer | | | | | Screening (Pap) | 9 | | | + + + + + | Adult Annual | | | | | Wellness Visit | 0 | | | + + + + + | Vaccine: Influenza | Completed | 03/10/2019, 02/26/2018, | | | | | 03/01/2017, Additional history | | | | | exists | | + + + + + Procedures + +--------+ + + + | Procedure Name | Priori | Date/Time | Associated Diagnosis | Comments | | | ty | | | | + +--------+ + + + | LABS - EXTERNAL SCAN | | 09/04/2019 | | Results for this | | | | 12:00 AM | | procedure are in the | | | | PDT | | results section. | + +--------+ + + + from Last 3 Months Results LABS - EXTERNAL SCAN (09/04/2019 12:00 AM PDT) + + + | Narrative | Performed At | + + + | Ordered by an | | | unspecified provider. | | + + + from Last 3 Months Insurance + +--------+ +--------+ +---------+--------+ | Payer | Benefi | Subscriber | Effect | Phone | Address | Type | | | t Plan | ID | nikko | | | | | | / | | Dates | | | | | | Group | | | | | | + +--------+ +--------+ +---------+--------+ | MEDICARE | MEDICA | [id number] | 12/09/19 | [phone] | | Medica | | | RE | | 08-Pre | 5 | | re | | | PART A | | sent | | | | | | AND B | | | | | | + +--------+ +--------+ +---------+--------+ | MEDICARE | MEDICA | [id number] | 12/09/19 | [phone] | | Medica | | | RE | | 08-Pre | 5 | | re | | | PART A | | sent | | | | | | AND B | | | | | | + +--------+ +--------+ +---------+--------+ | [employer] | MODA | [id number] | | [phone] | | Medica | | MEDICAID HMO | HEALTH | | 020-Pr | 1 | | id | | | MDCD | | esent | | | | | | [place] | | | | | | + +--------+ +--------+ +---------+--------+ | [employer] | MODA | [id number] | | [phone] | | Medica | | MEDICAID HMO | HEALTH | | 020-Pr | 1 | | id | | | MDCD | | esent | | | | | | [place] | | | | | | + +--------+ +--------+ +---------+--------+ + +--------+ +--------+ + + | Guarantor Name | Accoun | Relation to | Date | Phone | Billing Address | | | t Type | Patient | of | | | | | | | | | | + +--------+ +--------+ + + | Murali,Wanda N | Person | Self [birth year] | [address] | | | al/Fam | | 1980 | [phone] | [place] [address] | | | marni | | | 6 (Home) | | + +--------+ +--------+ + + | Wanda Carrion N | Person | Self [birth year] | [address] | | | al/Fam | | 1980 | [phone] | [place] [address] | | | marni | | | 6 (Home) | | + +--------+ +--------+ + + Advance Directives + + + + + | Type | Date Recorded | Patient | Explanation | | | | Pension Agent | | + + + + + | Power of | | | | | Chip Tuner | | | | + + + + + | Advance | | | | | Directive | | | | + + + + +
--- OUTSIDE RECORDS SUMMARY | ~2019-10-14 | XMS | Encounter Summary ---
Demographics + + + | Address | [address] | | | [place] [address] | + + + | Home Phone [...] + | Author | [facility] | | | and Rickyana | + + + | Organization | [facility] | | | and Rickyana | [...] Team Providers + +------+ + | Care Pinball Machine Repairer Name | Role | Phone | + +------+ + PCP | Unavailable | + +------+ + Encounter Details +--------+ + + + + | Date | Type | Department | Care Team | Description | +--------+ + + + + | 02/20/ | Abstract | [facility] | [facility] | | | 2011 | | Conversion Location | SR | | | | | [address] | | | | | | [place], [place] | | | | | | [address] | | | | | | [phone] | | | +--------+ + + + [...] + + + | Blood Pressure | 104/68 | 11/01/2010 12:00 AM | | | | | PDT | | + + + + + | Pulse | - | - | | + + + + + | Temperature | - | - | | + + + + + | Respiratory Rate | - | - | | + + + + + | Oxygen Saturation | - | - | | + + + + + | Inhaled Oxygen | - | - | | | Concentration | | | | + + + + + | Weight | 68.9 kg (152 lb) | 11/01/2010 12:00 AM | | | | | PDT | | + + + + + | Height | 167.6 cm (5' 6") | 08/09/2010 12:00 AM | | | | | PST | | + + + + + | Body Mass Index | 24.53 | 08/09/2010 12:00 AM | | | | | PST | | + + + + + documented in this encounter Plan of Treatment +--------+---------+ + + + | Date | Type | Specialty | Care Team | Description | +--------+---------+ + + + | 12/15/ | Office | Neurology | Nathaniel, | | | 2020 | Visit | | [address] | | | | | | [address] [place], | | | | | | [place] [address] | | | | | | [phone] | | | | | | | | +--------+---------+ + + + documented as of this encounter Visit Diagnoses Not on filedocumented in this encounter
[~2019-10-14 14:20] MED LIST changes: +FLONASE ALLERG9.9 ML NAS
[2019-10-15] MEDS ORDERED: LEVETIRACETAM500 MG PO (18:34)
--- NOTE | 2019-10-17 22:00 | OR ---
[facility] [address] [place], [place] [address] Signed DATE OF OPERATION: 10/15/2019 SURGEON: Rain Duckworth MD PREOPERATIVE DIAGNOSES: Stage IV colon carcinoma, mid transverse colon, primary lesion near obstruction and persistent bleeding and anemia. POSTOPERATIVE DIAGNOSES: 1. Stage IV colon carcinoma, mid transverse colon, primary lesion near obstruction and persistent bleeding and anemia. 2. Large bulky right hepatic lobe mass (biopsied). 3. No evidence of carcinomatosis. PROCEDURES PERFORMED: 1. Exploration of abdomen with transverse colectomy with end-to-end palliative colocolostomy. 2. Biopsy of right lobe liver lesion (biopsy gun biopsy). ANESTHESIA: General endotracheal; Rain Dobbins CRNA. INDICATIONS: This 39-year-old white woman, is a patient of Dr. Liz Manrique and has had anemia noted in July. Her hematocrit was as low as 23. She had seen Dr. Oneill for iron infusion therapy. A referral was made for upper endoscopy and colonoscopy to assess for a gastrointestinal blood loss source of her anemia. Colonoscopy and upper endoscopy were performed by [facility] recently, which demonstrated a bulky obvious neoplasm of the colon, initially thought to be the cecum, but subsequently found to be the right transverse colon consistent with moderately differentiated adenocarcinoma. Of note, upper endoscopy demonstrated a distal esophageal submucosal nodule and an ulcerated area at the GE junction. Biopsies of those lesions at the time of her colonoscopy demonstrated moderately differentiated adenocarcinoma, most likely consistent with metastatic disease from the colon. Of special note, CT scan was performed following colonoscopy showing multiple hepatic metastases, pulmonary nodular metastases, and of course, pathologic findings of the submucosal metastatic disease of the esophagus. She has no associated ascites. There is no abdominal pain per se. The patient is considered to have incurable disease and stage IV disease of that. She has conferred with her primary provider, Dr. Manrique as well as Dr. Oneill, medical oncologist. Her mother largely takes care of her and has [id number] over her, as she does Electronically Signed By: RAIN DUCKWORTH MD 10/17/19 2200 PATIENT NAME: CARLA GRIFFIN OPERATIVE REPORT DATE OF : 76 REPORT #: [id number] PHYSICIAN: RAIN DUCKWORTH MD PCP: LIZ MANRIQUE MD REPORT IS CONFIDENTIAL AND NOT TO BE RELEASED WITHOUT AUTHORIZATION 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 Additionally, she has a seizure disorder. I have recommended palliative resection of the offending lesion, as she is nearly obstructed with it and it has been a source of progressive anemia. As regards adjuvant palliative chemotherapy, she and her mother have declined proceeding with that after recent discussion with Dr. Oneill. The patient is admitted at this time to undergo palliative resection of the colonic lesion either by right colectomy or segmental colectomy. It is acknowledged the problem is incurable and the primary intent of resection is palliation. The risks of bleeding, infection, anastomotic failure, and other unforeseen complications was reviewed and they understand. In addition, the biopsy of liver lesion will be undertaken. There was quite obviously metastatic disease based on CT scan findings. She had no evidence of carcinomatosis or ascites. There was definitely a hard bulky lesion in the right lobe of the liver. This was biopsied at the end of the case. The bulky neoplasm itself was well demarcated by Endo Luis tattoo dye as well as gross palpation in the mid transverse colon. Rather than provide for right colectomy, a midtransverse colectomy was undertaken with an end-to-end colocolostomy providing excellent anastomosis. She had an excellent bowel prep. There were no palpable lesions in the right colon. Small bowel was otherwise normal. Stomach was normal as was gallbladder. Evaluation of the upper abdomen in the region of the mid body of the pancreas did show bulkiness suggestive of metastatic disease, no doubt from middle colic artery and vein distribution leading to the superior mesenteric artery and peripancreatic tissue. This may likely be a pathway for metastatic disease to the submucosal plexus of the esophagus as well. DESCRIPTION OF PROCEDURE: The patient was brought to the operating room, given a general endotracheal anesthetic. Padilla catheter was placed. Preoperative antibiotics were given and antibiotic based bowel prep and mechanical bowel prep were undertaken as well. The abdomen was prepared with a chlorhexidine solution after Padilla catheter was placed. A limited midline incision was made and the abdomen was entered without problem showing no sign of ascites or carcinomatosis. Intraabdominal palpation revealed a bulky tumor in the mid transverse colon. More proximal colon was well decompressed. The prep was deemed quite excellent. Palpation of the liver showed no metastatic disease in the left lateral segment, but a very large and rock-hard mass in the right lobe of the liver. The plane between the omentum and the stomach was dissected free, ultimately identifying well the mid transverse colon. It was deemed metal to provide extended right colectomy for the purpose of palliation under the circumstances and therefore, a transverse Electronically Signed By: RAIN DUCKWORTH MD 10/17/19 5989 PATIENT NAME: CARLA GRIFFIN OPERATIVE REPORT DATE OF : 76 REPORT #: [id number] PHYSICIAN: RAIN DUCKWORTH MD PCP: LIZ MANRIQUE MD REPORT IS CONFIDENTIAL AND NOT TO BE RELEASED WITHOUT AUTHORIZATION [facility] [address] [place], [place] [address] Signed colectomy was deemed most appropriate. The mesentery of the transverse colon was freed with blunt electrocautery dissection and the hepatic flexure mobilized with blunt electrocautery dissection as well. The left side of the transverse colon was mobilized more fully. Once the mesentery of the transverse colon was well demonstrated, palpation did reveal likely metastatic lymph nodes within the mesentery. This extended up to and behind the stomach consistent with CT scan findings. The mesentery of the mid transverse colon was scored with electrocautery and sequential application of hemostats undertaken. The vascular pedicles being divided and secured doubly with 0 silk ties. The right transverse and left transverse colonic portions were then transected with a OLEKSANDR stapling device. Hemostasis was carefully made throughout the dissection. The omentum remained with the mid transverse colon. An end-to-end colocolostomy was then undertaken in a two layer technique with interrupted 3-0 silk suture. The anastomosis was widely patent and completely airtight. Special inspection within the colon showed an excellent bowel prep. No solid fecal matter or even liquid matter and complete bowel prep was noted. The mesenteric defect was reapproximated with interrupted 3-0 silk suture. Irrigation was undertaken copiously and any areas of oozing or bleeding were secured with electrocautery. Attention was turned to the right lobe of the liver. The normal bit of parenchyma so as to avoid tumor seeding of the abdominal cavity. A biopsy gun biopsy was used to provide a core biopsy of the large bulky right lobe mass. The puncture site was secured with electrocautery. Irrigation was undertaken good hemostasis. The bowel was returned to its natural anatomic position. The midline fascia was reapproximated with running bilateral #1 PDS suture. Subcutaneous tissue was irrigated and hemostasis assured. The skin was then closed with a running subcuticular 3-0 Vicryl. Steri-Strips were applied as was a silver sponge dressing. The patient was ultimately extubated and transferred to recovery room in good condition and suffered no complications. Blood loss was estimated less than 200 mL. MD JEFFERY Saavedra/MODL /[id number] Electronically Signed By: RAIN DUCKWORTH MD 10/17/192199 PATIENT NAME: CARLA GRIFFIN OPERATIVE REPORT DATE OF : 76 REPORT #: [id number] PHYSICIAN: RAIN DUCKWORTH MD PCP: LIZ MANRIQUE MD REPORT IS CONFIDENTIAL AND NOT TO BE RELEASED WITHOUT AUTHORIZATION [address] [address] Signed cc: MD Liz Vo MD Copies: TEAGAN ONEILL MD, RUSSELL BARR MD ~ Electronically Signed By: RAIN DUCKWORTH MD 10/17/19 2200 PATIENT NAME: GABYCARLA Sonny OPERATIVE REPORT DATE OF : 76 REPORT #: [id number] PHYSICIAN: RAIN DUCKWORTH MD PCP: LIZ MANRIQUE MD REPORT IS CONFIDENTIAL AND NOT TO BE RELEASED WITHOUT AUTHORIZATION
[2019-10-19] MEDS ORDERED: IBUPROFEN600 MG PO (09:17)
[2019-10-19] MEDS ORDERED: FLUCONAZOLE200 MG PO (09:17)
[2019-10-19] MEDS ORDERED: TYLENOL EXTRA500 MG PO (09:17)
--- NOTE | 2019-10-20 09:56 | DS ---
[facility] [address] [place], [place] [address] Signed ADMISSION DATE: 10/15/2019 DISCHARGE DATE: 10/19/2019 REASON FOR ADMISSION: This 39-year-old white woman, is a patient of Dr. Manrique and has had anemia noted in July. Her hematocrit was as low as 23. She has seen Dr. Aragon for iron infusion therapy. She was referred for an upper endoscopy and colonoscopy to assess for gastrointestinal blood loss and found to have a neoplasm initially thought to be the cecum, but ultimately found to be the right transverse colon. Additionally, she had a submucosal lesion of the esophagus, which was consistent with adenocarcinoma. A CT scan performed showed bulky tumor of the colon in the right transverse colon as well as metastatic disease to the liver and elsewhere including pulmonary nodules and pathology on upper endoscopy, submucosal nodule of the esophagus confirmed to have adenocarcinoma consistent with metastatic disease from the colon. Full consideration has been made to best palliative care plan for her. She and her mother declined adjuvant chemotherapy, but resection of the colon is deemed reasonable as there is imminent obstruction and persistent blood-loss anemia. She is admitted for colectomy at this time. PERTINENT PHYSICAL EXAMINATION: GENERAL: Showed a pleasant white woman without signs of cachexia. CHEST: Clear. HEART: Regular without murmur. ABDOMEN: Somewhat obese, but soft. There is no palpable mass. HOSPITAL COURSE: On October 15, 2019, she underwent laparotomy with segmental resection of the transverse colon with an end-to-end colocolostomy. Additionally, liver biopsy was obtained. She had no evidence of carcinomatosis, but there was a large firm mass of the right lobe of the liver. There was some evidence of metastatic disease in the region of the midportion of the pancreas as suspected on CT scan. A tap block was used perioperatively to improve her postoperative pain control. Postoperatively, she was maintained with oral intake including her usual antiseizure medication. She was begun on a clear liquid diet immediately after operation and progressed soon thereafter to regular diet. By day of discharge, she is ambulating well with assistance, tolerating a regular solid diet, has had bowel movements and wound is healing well. FOLLOWUP PLAN: Electronically Signed By: RAIN DUCKWORTH MD 10/20/19 0956 PATIENT NAME: CARLA GRIFFIN DISCHARGE SUMMARY DATE OF : 76 REPORT #: [id number] PHYSICIAN: RAIN DUCKWORTH MD PCP: LIZ MANRIQUE MD REPORT IS CONFIDENTIAL AND NOT TO BE RELEASED WITHOUT AUTHORIZATION [facility] [address], [place] [address] Signed She is return to see me in approximately a month. DISCHARGE MEDICATIONS: Will include Diflucan 200 mg p.o. daily #5, ibuprofen 600 mg p.o. q.6 hours as needed for pain #60 and Tylenol Extra Strength 500 mg two tablets p.o. q. 6 hours as needed for pain #60. She will resume her usual medications include Felbatol 600 mg two tabs in a.m., three tabs at bedtime, Padilla catheter 1 mg daily, multivitamin one p.o. daily, lorazepam 1 mg tablet as needed for anxiety and fluticasone allergy spray as needed for allergies. DISCHARGE DIAGNOSES: 1. Stage IV incurable right transverse colon cancer with metastatic disease to liver, lesser sac, likely lung and submucosa of the esophagus. 2. Status post palliative transverse colectomy with liver biopsy. 3. Distant history of meningitis with subsequent development of epilepsy and some developmental delay. 4. Mild perineal yeast dermatitis (resolving). Rain Duckworth MD /MODL /[id number] cc: MD Javier Suazo MD Copies: LIZ MANRIQUE MD, ROBERT C MD ~ Electronically Signed By: RAIN DUCKWORTH MD 10/20/19 0956 PATIENT NAME: CARLA GRIFFIN DISCHARGE SUMMARY DATE OF : 76 REPORT #: [id number] PHYSICIAN: RAIN DUCKWORTH MD PCP: LIZ MANRIQUE MD REPORT IS CONFIDENTIAL AND NOT TO BE RELEASED WITHOUT AUTHORIZATION
== END 2019-10-19 12:15 | disposition home or self-care (01) | DRG 330 ==
LOC: MS 10-15 09:05 → DSVR 10-15 09:05 → MS 10-15 10:00
PROVIDERS: ADMIT Surgery
PROC: 0FB10ZX Excision of Right Lobe Liver, Open Approach, Diagnostic (ICD-10-PCS; 2019-10-15)
PROC: 3E0T3BZ Introduction of Anesthetic Agent into Peripheral Nerves and Plexi, Percutaneous Approach (ICD-10-PCS; 2019-10-15)
PROC: 3E0T33Z Introduction of Anti-inflammatory into Peripheral Nerves and Plexi, Percutaneous Approach (ICD-10-PCS; 2019-10-15)
PROC: 0DTL0ZZ Resection of Transverse Colon, Open Approach (ICD-10-PCS; principal; 2019-10-15 10:00)
DX: C18.4 Malignant neoplasm of transverse colon (principal); C78.7 Secondary malignant neoplasm of liver and intrahepatic bile duct; C78.00 Secondary malignant neoplasm of unspecified lung; C78.89 Secondary malignant neoplasm of other digestive organs; B37.89 Other sites of candidiasis; G89.18 Other acute postprocedural pain; D50.0 Iron deficiency anemia secondary to blood loss (chronic); F41.1 Generalized anxiety disorder; J30.9 Allergic rhinitis, unspecified; G09 Sequelae of inflammatory diseases of central nervous system; R62.50 Unspecified lack of expected normal physiological development in childhood; G40.909 Epilepsy, unspecified, not intractable, without status epilepticus; Z91.040 Latex allergy status; Z79.51 Long term (current) use of inhaled steroids; Z79.899 Other long term (current) drug therapy
CPT/HCPCS: 00790; 36415; 76942; 80048; 85025; 97110; 97116; 97162; 97530; A9270; J0694; J1100; J1644; J1885; J2060; J2270; J2405; J2704; J2795; J3010; J7121; U0002